=== PATIENT | female | born 1995 | race African-American/Black ===

== ENCOUNTER 2019-11-11 20:05 | Emergency (ER) | payer OTHER, SELFPAY ==
[2019-11-11] MEDS ORDERED: Adacel (T-DAP) 0.5 ML SYRINGE ONE (20:40)
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
--- NOTE | 2019-11-11 21:13 | RAD ---
RIGHT SHOULDER: 11/11/19 Three views. HISTORY: Injury. No evidence of fracture or dislocation. The positioning is suboptimal; however, no acute abnormality identified. IMPRESSION: Poor positioning. No fracture or dislocation identified. POS: [facility]
[2019-11-11] MEDS ORDERED: Bacitracin 1 PK ONE (21:20)
== END 2019-11-11 21:36 | disposition home or self-care (01) ==
LOC: ERS 20:05
DX: S46.911A Strain of unspecified muscle, fascia and tendon at shoulder and upper arm level, right arm, initial encounter (principal); S50.311A Abrasion of right elbow, initial encounter; F41.9 Anxiety disorder, unspecified; W18.09XA Striking against other object with subsequent fall, initial encounter
CPT/HCPCS: 90471; 90715

== ENCOUNTER 2019-11-14 12:46 | Emergency (ER) | payer SELFPAY ==
[2019-11-14] MEDS ORDERED: Bacitracin 1 PK ONE (13:31)
== END 2019-11-14 13:38 | disposition home or self-care (01) ==
LOC: ERS 12:46
DX: S80.211A Abrasion, right knee, initial encounter (principal); S50.311D Abrasion of right elbow, subsequent encounter; F41.9 Anxiety disorder, unspecified; V43.92XA Unspecified car occupant injured in collision with other type car in traffic accident, initial encounter
CPT/HCPCS: 99283